=== PATIENT | male | born 1965 | race Caucasian/White ===

== ENCOUNTER 2019-04-04 22:04 | Emergency (ER) | payer SELFPAY ==
[2019-04-04] MEDS ORDERED: HYDROMORPHONE HCL 2 MG/ML inj ONE (22:20)
[2019-04-04] MEDS ORDERED: NA CHLORIDE 0.9% 3,000 ML ONE (22:20)
[2019-04-04] MEDS ORDERED: ONDANSETRON 4 MG/2 ML VIAL ONE (22:20)
[2019-04-04] MEDS ORDERED: FAMOTIDINE 20 MG/2 ML VIAL IV ONE (22:20)
[2019-04-04 22:35] LABS: Absolute Lymphocytes (CBC) 3.9 K/uL (0.7-4.9); Basophils % 0.6 % (0-1.3); Hematocrit 38.9 % (39.6-49.0); Lymphocytes % 42.3 % (15.3-44.8); MPV 8.8 fL (7.6-11.3); RBC Red Blood Cell Count 4.47 M/uL (4.33-5.43)
[2019-04-04 22:38] LABS: Protime INR 0.9
[2019-04-04 23:00] LABS: ALT/SGPT 55 U/L (12-78); AST/SGOT 69 U/L (15-37); Albumin 3.8 g/dL (3.4-5.0); Alkaline Phosphatase 74 U/L (45-117); BUN Blood Urea Nitrogen 23 mg/dL (7-18); Bicarbonate 27 mmol/L (21-32); Bilirubin Direct 0.2 mg/dL (0-0.2); Bilirubin Total 0.5 mg/dL (0.2-1.0); Glucose Level 124 mg/dL (74-106); Lipase 4877 U/L (73-393); Magnesium 1.9 mg/dL (1.8-2.4); NT PRO-BNP 147 pg/mL (<125); Potassium 3.5 mmol/L (3.5-5.1); Protein, Total 6.7 g/dL (6.4-8.2); Sodium Level 141 mmol/L (136-145); Troponin (Emerg Dept Use Only) < 0.02 ng/mL (0.0-0.045)
--- NOTE | 2019-04-04 23:17 | ER ---
Nurse's Notes [facility] Name: Lala Irving Age: 54 yrs Sex: Male : 1965 Arrival Date: 04/04/2019 Time: 22:08 Bed 26 Private MD: Diagnosis: Acute pancreatitis;Abdominal tenderness;Unspecified kidney failure Presentation: 04/04 22:12 Presenting complaint: EMS states: pt hyperventilating pt c/o sudden onset of abd pain, ak1 pressure. pt stated to EMS pt with hx pancreatitis. Transition of care: patient was not received from another setting of care. Onset of symptoms was April 04, 2019 at 21:35. Risk Assessment: Do you want to hurt yourself or someone else? Patient reports no desire to harm self or others. Initial Sepsis Screen: Does the patient meet any 2 criteria? No. Patient's initial sepsis screen is negative. Does the patient have a suspected source of infection? No. Patient's initial sepsis screen is negative. 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 22:12 Method Of Arrival: EMS: [facility] ak1 22:12 Acuity: REX 3 ak1 Triage Assessment: 22:17 General: Appears uncomfortable, Behavior is cooperative. Pain: Complains of pain in ak1 abdomen. EENT: No signs and/or symptoms were reported regarding the EENT system. Historical: - Allergies: 22:17 No Known Allergies; ak1 - Home Meds: 22:17 amlodipine 5 mg tab 1 tab once daily [Active]; ak1 - PMHx: 22:17 GERD; Pancreatitis; Hypertension; ak1 - PSHx: 22:17 Cholecystectomy; back sx; shoulder sx; knee sx; ak1 - Immunization history:: Adult Immunizations. - Social history:: Smoking status: Patient uses tobacco products, smokes one pack cigarettes per day. - Ebola Screening: : No symptoms or risks identified at this time. - Family history:: not pertinent. Screenin:30 Abuse screen: Denies threats or abuse. Nutritional screening: No deficits noted. tr5 Tuberculosis screening: No symptoms or risk factors identified. Fall Risk None identified. Assessment: 22:30 General: Appears distressed, uncomfortable, Behavior is cooperative, restless. Pain: tr5 Complains of pain in abdomen. Pain: Pain currently is 10 out of 10 on a pain scale. Quality of pain is described as crampy, Pain began suddenly, 1 hour ago. Neuro: Level of Consciousness is awake, alert, obeys commands, Oriented to person, place, time, Senior Marketing Specialist are equal bilaterally Moves all extremities. Cardiovascular: Heart tones present Capillary refill < 3 seconds Pulses are all present. Edema is absent. Respiratory: Airway is patent Respiratory effort is even, unlabored, Respiratory pattern is regular, symmetrical. GI: Reports lower abdominal pain, upper abdominal pain. : No signs and/or symptoms were reported regarding the genitourinary system. EENT: No signs and/or symptoms were reported regarding the EENT system. Derm: No signs and/or symptoms reported regarding the dermatologic system. Musculoskeletal: No signs and/or symptoms reported regarding the musculoskeletal system. Injury Description:. 23:46 Reassessment: Patient appears in no apparent distress at this time. Patient and/or tr5 family updated on plan of care and expected duration. Pain level reassessed. Patient is alert, oriented x 3, equal unlabored respirations, skin warm/dry/pink. Vital Signs: 22:17 BP 157 / 106; Pulse 66; Resp 30; Temp 97.8(O); Pulse Ox 97% on R/A; Weight 104.33 kg ak1 (R); Height 5 ft. 66 in. (320.04 cm); Pain 10/10; 23:46 BP 130 / 72; Pulse 53; Resp 17; Pulse Ox 95% on R/A; tr5 22:17 Body Mass Index 10.19 (104.33 kg, 320.04 cm) ak1 ED Course: 22:08 Patient arrived in ED. ak1 22:11 Yonatan London MD is Attending Physician. [facility] 22:16 Triage completed. ak1 22:16 Gustabo Ornelas, RN is Primary Nurse. tr5 22:17 Arm band placed on Patient placed in an exam room, on a stretcher, Patient notified of ak1 wait time. 22:30 Bed in low position. Call light in reach. Side rails up X 1. campus monitor on. Pulse tr5 ox on. NIBP on. 22:33 Initial lab(s) drawn, by me, sent to lab. Maintain EMS IV. Dressing intact. Good blood jp3 return noted. Site clean \T\ dry. Gauge \T\ site: 20gauge in Left AC. Patient maintains SpO2 saturation greater than 95% on room air. 23:15 XRAY Chest (1 view) In Process Unspecified. EDMS 04/05 01:05 CT Abd/Pelvis - PO and IV Contrast In Process Unspecified. EDMS 01:29 No provider procedures requiring assistance completed. Patient transferred, IV remains tr5 in place. Administered Medications: 04/04 23:01 Drug: Pepcid 20 mg Route: IVP; Site: left antecubital; tr5 04/05 01:29 Follow up: Response: No adverse reaction tr5 04/04 23:02 Drug: Dilaudid 1 mg {Note: RASS:0.} Route: IVP; Site: left antecubital; tr5 04/05 00:50 Follow up: Response: Pain is decreased; RASS: Alert and Calm (0) tr5 04/04 23:03 Drug: Zofran 4 mg Route: IVP; Site: left antecubital; tr5 04/05 00:49 Follow up: Response: Nausea is decreased tr5 04/04 23:03 Drug: NS 0.9% 1000 ml Route: IV; Rate: 1 bolus; Site: left antecubital; tr5 04/05 00:50 Follow up: IV Status: Completed infusion; IV Intake: 1000ml tr5 04/04 23:03 Drug: NS 0.9% 1000 ml Route: IV; Rate: 1 bolus; Site: left antecubital; tr5 04/05 00:54 Follow up: IV Status: Completed infusion; IV Intake: 1000ml tr5 00:49 Drug: NS 0.9% 1000 ml Route: IV; Rate: 125 ml/hr; Site: left antecubital; tr5 00:51 Follow up: IV Status: Completed infusion; IV Intake: 1000ml tr5 Intake: 00:50 IV: 1000ml; Total: 1000ml. tr5 00:51 IV: 1000ml; Total: 2000ml. tr5 00:54 IV: 1000ml; Total: 3000ml. tr5 Outcome: 04/04 23:16 ER care complete, transfer ordered by flor 04/05 01:29 Transferred by ground EMS to [facility], Transfer form completed. tr5 Condition: stable Instructed on the need for transfer. 01:30 Patient left the ED. tr5 Signatures: Dispatcher [employer] Yonatan Blanca MD MD cha Krenek, Amber RN RN ak1 Daniel Najera jp3 Gustabo Ornelas RN RN tr5
--- NOTE | 2019-04-04 23:18 | EDPHYS ---
Physician Documentation [facility] Name: Lala Irving Age: 54 yrs Sex: Male : 1965 Arrival Date: 04/04/2019 Time: 22:08 Bed 26 Private MD: ED Physician Yonatan London HPI: 04/04 23:12 This 54 yrs old Male presents to ER via EMS with complaints of abdominal flor pain, hx of pancreatitis. 23:12 The patient presents with abdominal pain. Onset: The symptoms/episode began/occurred flor today. The symptoms do not radiate. Associated signs and symptoms: none. The symptoms are described as crampy, steady. Modifying factors: The symptoms are alleviated by nothing. Severity of pain: At its worst the pain was moderate severe in the emergency department the pain is unchanged. The patient has experienced similar episodes in the past, a few times. Historical: - Allergies: 22:17 No Known Allergies; ak1 - Home Meds: 22:17 amlodipine 5 mg tab 1 tab once daily [Active]; ak1 - PMHx: 22:17 GERD; Pancreatitis; Hypertension; ak1 - PSHx: 22:17 Cholecystectomy; back sx; shoulder sx; knee sx; ak1 - Immunization history:: Adult Immunizations. - Social history:: Smoking status: Patient uses tobacco products, smokes one pack cigarettes per day. - Ebola Screening: : No symptoms or risks identified at this time. - Family history:: not pertinent. ROS: 23:12 Constitutional: Negative for fever, chills, and weight loss, Eyes: Negative for injury, flor pain, redness, and discharge, ENT: Negative for injury, pain, and discharge, Neck: Negative for injury, pain, and swelling, Cardiovascular: Negative for chest pain, palpitations, and edema, Respiratory: Negative for shortness of breath, cough, wheezing, and pleuritic chest pain, Back: Negative for injury and pain, : Negative for injury, bleeding, discharge, and swelling, MS/Extremity: Negative for injury and deformity, Skin: Negative for injury, rash, and discoloration, Neuro: Negative for headache, weakness, numbness, tingling, and seizure, Psych: Negative for depression, anxiety, suicide ideation, homicidal ideation, and hallucinations, Allergy/Immunology: Negative for hives, rash, and allergies, Endocrine: Negative for neck swelling, polydipsia, polyuria, polyphagia, and marked weight changes, Hematologic/Lymphatic: Negative for swollen nodes, abnormal bleeding, and unusual bruising. 23:12 Abdomen/GI: Positive for abdominal pain, of the epigastric area, right upper quadrant and left upper quadrant. Exam: 23:12 Constitutional: This is a well developed, well nourished patient who is awake, alert, flor and in no acute distress. Head/Face: Normocephalic, atraumatic. Eyes: Pupils equal round and reactive to light, extra-ocular motions intact. Lids and lashes normal. Conjunctiva and sclera are non-icteric and not injected. Cornea within normal limits. Periorbital areas with no swelling, redness, or edema. ENT: Nares patent. No nasal discharge, no septal abnormalities noted. Tympanic membranes are normal and external auditory canals are clear. Oropharynx with no redness, swelling, or masses, exudates, or evidence of obstruction, uvula midline. Mucous membranes moist. Neck: Trachea midline, no thyromegaly or masses palpated, and no cervical lymphadenopathy. Supple, full range of motion without nuchal rigidity, or vertebral point tenderness. No Meningismus. Chest/axilla: Normal chest wall appearance and motion. Nontender with no deformity. No lesions are appreciated. Cardiovascular: Regular rate and rhythm with a normal S1 and S2. No gallops, murmurs, or rubs. Normal PMI, no JVD. No pulse deficits. Respiratory: Lungs have equal breath sounds bilaterally, clear to auscultation and percussion. No rales, rhonchi or wheezes noted. No increased work of breathing, no retractions or nasal flaring. Back: No spinal tenderness. No costovertebral tenderness. Full range of motion. Male : Normal genitalia with no discharge or lesions. Skin: Warm, dry with normal turgor. Normal color with no rashes, no lesions, and no evidence of cellulitis. MS/ Extremity: Pulses equal, no cyanosis. Neurovascular intact. Full, normal range of motion. Neuro: Awake and alert, GCS 15, oriented to person, place, time, and situation. Cranial nerves II-XII grossly intact. Motor strength 5/5 in all extremities. Sensory grossly intact. Cerebellar exam normal. Normal gait. Psych: Awake, alert, with orientation to person, place and time. Behavior, mood, and affect are within normal limits. 23:12 Abdomen/GI: Inspection: abdomen appears normal, Bowel sounds: normal, Palpation: moderate abdominal tenderness, in the epigastric area, right upper quadrant and left upper quadrant, Liver: no appreciated palpable abnormalities, Hernia: noted in the umbilical area. Vital Signs: 22:17 BP 157 / 106; Pulse 66; Resp 30; Temp 97.8(O); Pulse Ox 97% on R/A; Weight 104.33 kg ak1 (R); Height 5 ft. 66 in. (320.04 cm); Pain 10/10; 23:46 BP 130 / 72; Pulse 53; Resp 17; Pulse Ox 95% on R/A; tr5 22:17 Body Mass Index 10.19 (104.33 kg, 320.04 cm) ak1 MDM: 22:12 Patient medically screened. [facility] 23:12 Data reviewed: vital signs, nurses notes, lab test result(s), EKG, radiologic studies, [facility] CT scan, plain films. 04/04 22:13 Order name: Basic Metabolic Panel; Complete Time: 00:16 [facility] 04/04 22:13 Order name: CBC with Diff; Complete Time: 23:11 [facility] 04/04 22:13 Order name: LFT's; Complete Time: 00:16 [facility] 04/04 22:13 Order name: Magnesium; Complete Time: 00:16 [facility] 04/04 22:13 Order name: NT PRO-BNP; Complete Time: 00:16 [facility] 04/04 22:13 Order name: PT-INR; Complete Time: 23:11 [facility] 04/04 22:13 Order name: Troponin (emerg Dept Use Only); Complete Time: 00:16 [facility] 04/04 22:13 Order name: XRAY Chest (1 view) [facility] 04/04 22:13 Order name: Lipase; Complete Time: 00:16 [facility] 04/04 22:16 Order name: CT Abd/Pelvis - PO and IV Contrast [facility] 04/05 00:09 Order name: Lipid Profile; Complete Time: 00:16 [facility]FL 04/04 22:13 Order name: EKG; Complete Time: 22:14 [facility] 04/04 22:13 Order name: Cardiac monitoring; Complete Time: 23:03 [facility] 04/04 22:13 Order name: EKG - Nurse/Tech; Complete Time: 23:03 [facility] 04/04 22:13 Order name: IV Saline Lock; Complete Time: 23:04 [facility] 04/04 22:13 Order name: Labs collected and sent; Complete Time: 23:04 [facility] 04/04 22:13 Order name: O2 Per Protocol; Complete Time: 23:04 [facility] 04/04 22:13 Order name: O2 Sat Monitoring; Complete Time: 23:10 [facility] Administered Medications: 23:01 Drug: Pepcid 20 mg Route: IVP; Site: left antecubital; [facility] 04/05 01:29 Follow up: Response: No adverse reaction [facility] 04/04 23:02 Drug: Dilaudid 1 mg {Note: RASS:0.} Route: IVP; Site: left antecubital; tr5 04/05 00:50 Follow up: Response: Pain is decreased; RASS: Alert and Calm (0) [facility] 04/04 23:03 Drug: Zofran 4 mg Route: IVP; Site: left antecubital; tr5 04/05 00:49 Follow up: Response: Nausea is decreased [facility] 04/04 23:03 Drug: NS 0.9% 1000 ml Route: IV; Rate: 1 bolus; Site: left antecubital; tr5 04/05 00:50 Follow up: IV Status: Completed infusion; IV Intake: 1000ml [facility] 04/04 23:03 Drug: NS 0.9% 1000 ml Route: IV; Rate: 1 bolus; Site: left antecubital; tr5 04/05 00:54 Follow up: IV Status: Completed infusion; IV Intake: 1000ml tr5 00:49 Drug: NS 0.9% 1000 ml Route: IV; Rate: 125 ml/hr; Site: left antecubital; tr5 00:51 Follow up: IV Status: Completed infusion; IV Intake: 1000ml tr5 Disposition: 04/04/19 23:16 Transfer ordered to [facility]. Diagnosis are Acute pancreatitis, Abdominal tenderness, Unspecified kidney failure. - Reason for transfer: Higher level of care. - Accepting physician is to [facility]. - Condition is Fair. - Problem is new. - Symptoms have improved. Signatures: Dispatcher [employer] Yonatan Blanca MD MD cha Krenek, Amber, RN RN ak1 Gustabo Ornelas RN RN tr5 Corrections: (The following items were deleted from the chart) 00:21 04/04 23:56 LIPID PROFILE+[id number].LAB.BRZ ordered. EDMS EDMS 04/05 01:30 04/04 23:16 04/04/2019 23:16 Transfer ordered to [facility]. tr5 Diagnosis is Acute pancreatitis; Abdominal tenderness; Unspecified kidney failure. Reason for transfer: Higher level of care. Accepting physician is to [facility]. Condition is Fair. Problem is new. Symptoms have improved. flor
[2019-04-05 00:09] LABS: HDL Cholesterol 44 mg/dL (40-60); LDL Cholesterol, Calculated 115 (<130)
[2019-04-05 01:35] VITALS: TEMP 97.8
[2019-04-05 01:37] VITALS: BP 130/72; O2SAT 95
--- NOTE | 2019-04-05 06:09 | EKG ---
Test Date: 2019-04-04 Test Time: 22:42:42 Store Merchandiser: TR MEASUREMENT RESULTS: Intervals: Rate: 57 ME: 208 QRSD: 96 QT: 418 QTc: 406 [place]: P: 45 ME: 208 QRS: 34 T: 40 INTERPRETIVE STATEMENTS: Sinus bradycardia Minimal voltage criteria for LVH, may be normal variant Borderline ECG Compared to ECG 10/01/2015 16:27:54 Left ventricular hypertrophy now present Sinus rhythm no longer present T-wave abnormality no longer present Electronically Signed On 04-05-19 06:08:57 CDT by Gui Nagel
--- NOTE | 2019-04-05 09:44 | RAD REPORT ---
EXAM DESCRIPTION: Rigobertot Single View04/04/2019 11:15 pm CLINICAL HISTORY: cough COMPARISON: 2016 FINDINGS: The lungs appear clear of acute infiltrate. The heart is borderline enlarged Aorta is tortuous/ectatic IMPRESSION: No acute abnormalities displayed
--- NOTE | 2019-04-06 11:41 | RAD REPORT ---
EXAM DESCRIPTION: CT - Abdomen Pelvis W Contrast - 04/05/2019 1:46 am CLINICAL HISTORY: 54-year-old male with abdominal pain TECHNIQUE: Axial CT imaging of the abdomen and pelvis was performed following the administration of intravenous contrast.. Sagittal and coronal reconstructed images were then performed. The CT stud y is performed according to ALARA (as low as reasonably achievable) or ALARA/IMAGE GENTLY, with autom atic adjustment of mA and/or kV according to patient size. Performed on: 04/05/2019 at 12:49 AM. COMPARISON: CT abdomen and pelvis without contrast performed on 10/01/2015 FINDINGS: Lung bases: The lung bases are clear. Liver: The liver is normal in size and configuration. No focal hepatic abnormalities are identified. Liver attenuation is within normal limits. Spleen: The spleen is enlarged and measures 14.6 cm in craniocaudal dimension. No focal splenic abnor malities are identified. Gallbladder and bile duct: The gallbladder is surgically absent. There is no biliary ductal dilatat ion. Pancreas: The pancreas is grossly normal in size and configuration. Adrenal Glands: The adrenal glands are normal in size and configuration. Kidneys: The kidneys are normal in size and configuration. Again demonstrated is marked dilatation of the inferior right renal collecting system. The upper pole calyces are normal in caliber. Findings m ay be developmental in nature. There is no obstructing ureteral calcification. There is no evidence o f nephrolithiasis. There are a couple of small left renal cortical cysts. Stomach: The stomach is grossly normal. There is questionable gastric wall thickening along the great er curvature of the gastric antrum and body. There is no definite hiatal hernia. Bowel: The bowel gas pattern is non specific and non obstructive. Appendix: The appendix is normal. Free air: There is no evidence of free air. Free fluid: There is no evidence of free fluid. Vasculature: The aorta is normal in caliber and contour. The inferior vena cava is grossly unremarkab le. Lymphadenopathy: No pathologic lymphadenopathy is identified. There are a few small scattered retrope ritoneal lymph nodes. Bladder: The bladder is well distended and smooth in contour. Reproductive: The prostate gland is grossly within normal limits. Bones: No acute osseous abnormalities are identified. There are mild degenerative changes of the spin e. Soft tissues: There is a marleni appearance of the mesenteric fat within the central abdomen which is n onspecific but can be seen with sclerosing mesenteritis. This could represent the sequela of prior pa ncreatitis. There is a fat-containing ventral abdominal hernia which has increased in size since the prior study. Currently this measures approximately 5.8 x 3.9 cm in cross-sectional diameter by approx imately 8.6 cm in craniocaudal dimension. IMPRESSION: 1. No definite acute intra-abdominal or intrapelvic pathology. 2. Nonspecific marleni appearance of the mesentery within the central abdomen which could reflect scler osing mesenteritis or possibly the sequela of prior pancreatitis. There are a few small scattered ret roperitoneal lymph nodes. 3. Splenomegaly. 4. Grossly stable marked dilatation of the right inferior renal collecting system which may be develo pmental in nature. There is no obstructing ureteral calculus. 5. Prior cholecystectomy. 6. Interval enlargement of a fat-containing ventral umbilical hernia. 7. Questionable gastric wall thickening along the greater curvature of the gastric antrum and body. F indings could reflect incomplete distention, chronic inflammatory process or potentially neoplastic p rocess. Electronically signed by: Kezia Rojas DO 04/05/2019 1:39 AM CDT Due to temporary technical issues with the PACS/Fluency reporting system, reports are being signed by the in house radiologist as a courtesy to ensure prompt reporting. The interpreting radiologist is albaro ryder responsible for the content of the report.
== END 2019-04-05 01:30 | disposition short-term general hospital (02) ==
LOC: ER 22:04
DX: K85.90 Acute pancreatitis without necrosis or infection, unspecified (principal); N19 Unspecified kidney failure; I10 Essential (primary) hypertension; F17.210 Nicotine dependence, cigarettes, uncomplicated
CPT/HCPCS: 36415; 71045; 74177; 80048; 80061; 80076; 83690; 83735; 83880; 84484; 85025; 85610; 93005; 96361; 96374; 96375; 99285; J1170; J2405; J7030; Q9967

== ENCOUNTER 2023-05-08 12:33 | Day surgery (SDC) | payer OTHER ==
[2023-05-03 09:19] LABS: Absolute Lymphocytes (CBC) 2.1 K/uL (0.7-4.9); Hematocrit 42.1 % (39.6-49.0); Lymphocytes % 29.7 % (15.3-44.8); MCV 88.3 fL (80-100); MPV 8.5 fL (7.6-11.3); Platelets 167 thou/uL (152-406); RBC Red Blood Cell Count 4.77 M/uL (4.33-5.43)
[2023-05-03 10:50] LABS: Potassium 3.7 mEq/L (3.5-5.1)
--- NOTE | 2023-05-03 14:22 | EKG ---
Test Date: 2023-05-03 Test Time: 09:53:56 Beam Builder Helper: EDWARD MEASUREMENT RESULTS: Intervals: Rate: 48 MD: 202 QRSD: 94 QT: 430 QTc: 384 [place]: P: 55 MD: 202 QRS: 35 T: 72 INTERPRETIVE STATEMENTS: Marked sinus bradycardia Left ventricular hypertrophy with repolarization abnormality Abnormal ECG Compared to ECG 04/04/2019 22:42:42 Early repolarization now present Electronically Signed On 05-03-23 14:21:50 FURNACE UNLOADER by Brendan Hankins
[2023-05-08] MEDS ORDERED: CEFAZOLIN SODIUM 2 GM/VIAL ONE (12:59)
[2023-05-08] MEDS ORDERED: Ringers Lactate 1,000 ML IV ONE (12:59)
[2023-05-08] MEDS ORDERED: BUPIVACAINE 0.25% PF 30 ML VIAL ONE (13:08)
[2023-05-08] MEDS ORDERED: MIDAZOLAM HCL 2 MG/2 ML INJ ONE (14:10)
[2023-05-08] MEDS ORDERED: propofoL 200 MG/20 ML VIAL IV ONE (14:10)
[2023-05-08] MEDS ORDERED: FENTANYL CITR 100 MCG/2 ML ONE (14:10)
[2023-05-08] MEDS ORDERED: ROCURONIUM 50 MG/5 ML VIAL IV ONE (14:11)
[2023-05-08] MEDS ORDERED: LIDOCAINE 2% MPF 5 ML VIAL ONE (14:15)
[2023-05-08] MEDS ORDERED: GLYCOPYRROLATE 0.2 MG/ML SYR ONE (15:11)
[2023-05-08] MEDS ORDERED: EPHEDRINE SULF 50 MG/ML VIAL ONE (15:11)
[2023-05-08] MEDS ORDERED: ONDANSETRON 4 MG/2 ML VIAL ONE (15:19)
--- NOTE | 2023-05-08 15:21 | P.OP ---
Preoperative diagnosis: Ventral Incisional Hernia Postoperative diagnosis: Ventral Incisional Hernia Primary procedure: Laparoscopic Ventral Incisional Hernia Repair with mesh Secondary procedure: Laparoscopic Adhesiolysis > 60min Anesthesia: GETA + Local Estimated blood loss: ~20cc Specimen: hernia contents Findings: incarcerated omentum, small bowel in hernia defect ~ 7cm round jasiel umbilica Complications: None Implants: Bard Ventralite ST Mesh 15cm Round, 75 Sorbafix Tacks Transferred to: Recovery Room Condition: Good
[2023-05-08] MEDS: HYDROMORPHONE HCL 1 MG/ML INJ ONE ×6 (15:29→16:20)
[2023-05-08] MEDS: FENTANYL CITR 100 MCG/2 ML ONE ×2 (15:49→15:54)
--- NOTE | 2023-05-08 16:22 | OP ---
Date of Procedure: 05/08/2023 Surgeon: Denzel John MD, Preoperative Diagnosis: Ventral incisional hernia. Postoperative Diagnosis: Ventral incisional hernia. Procedures Performed: 1.Laparoscopic ventral incisional hernia repair with mesh. 2.Laparoscopic adhesiolysis greater than 60 minutes. Anesthesia: General endotracheal plus local with 0.25% Marcaine. Estimated Blood Loss: 20 cc. Specimen: Hernia contents. Findings: Incarcerated omentum, small bowel hernia defect approximately 7 cm, periumbilical hernia d efect noted. Complications: None. Implants: Bard Ventralight ST mesh with Echo Positioning System. A 15 cm round mesh utilized, 75 So rbaFix absorbable fixation tacks utilized. Disposition: Patient was transferred to recovery room in good condition. Procedure In Detail: After informed consent was obtained, patient was brought to the operating room, prepped and draped in the usual sterile fashion. After adequate anesthesia was achieved, I anesthet ized the area of the left upper quadrant down to subcutaneous tissues. A 5 mm 0-degree optical troca r was introduced in the abdomen without any evidence of complication. Insufflation was obtained to 1 5 mmHg at this time. There was no injury to vital structures in the abdomen. Additional trocar was placed in the left lower quadrant. This was similarly anesthetized, sharply incised. A 5 mm trocar was placed under direct vision without evidence of complication. I then used a LigaSure device to ta ke down significant omental and small bowel adhesions from the anterior abdominal wall without eviden ce of complication. There was no small bowel injury or strangulation noted to any segment of small b owel throughout the entire procedure. After small bowel was reduced using predominately blunt dissec tion, only thin alveolar attachments were attached to small bowel. After the adipose tissue was amy jordyn from the anterior abdominal wall and reduced from the periumbilical hernia defect, it was reduced in normal anatomic position. After this was performed, I swept clean the preperitoneal fat using th e LigaSure device to allow for appropriate landing zone. The size of the hernia defect at this point , found to be approximately 7 cm round in the periumbilical position to the right and inferior of the umbilicus. The neck was described as approximately 7 cm in size. At this point, I brought in the 1 5 cm [address] [employer] Vent[address]ight ST mesh with Echo Positioning System, deployed the mesh in the central po rtion of the defect and secured to the anterior abdominal wall using a single crown at this point wit h SorbaFix absorbable fixation tacks. At this point, the hernia defect was closed quite well. I rem carson the balloon deployment system, found to be intact on the back table and I secured the mesh to th e anterior abdominal using a total of 75 absorbable fixation tacks from the SorbaFix tacker with good apposition of mesh to the abdominal wall. There was 1 area of bleeding from the right lower side of the abdominal wall, which was controlled with additional tack placement and gentle pressure on the a bdominal wall for approximately 60 seconds. At this point, no additional hemostatic measures require d throughout the procedure. The area was checked multiple times under desufflation and with multiple probing attempts without any additional bleeding. At this point, the mesh was in good position. No additional hemostatic measures required. I closed the left lower quadrant trocar site using a Carte r-Cristal suture passer with 0 Vicryl in interrupted fashion with good approximation of tissues. Th e abdomen was completely desufflated under direct vision without evidence of complication. Remaining trocars were removed. All skin edges were then copiously irrigated and closed with a 4-0 Monocryl f ashion with Dermabond placed over top. Patient tolerated the procedure well without evidence of complication and was transferred in good condition. All counts we re correct at the end of the case. JEANNE/TRUNG Voice ID: [id number] Report ID: [id number]
[2023-05-08] MEDS ORDERED: HYDROCODONE/APAP 10/325 TAB ONE (16:55)
[2023-05-08 17:17] VITALS: BP 135/65; TEMP 97.9; O2SAT 95
== END 2023-05-08 17:15 | disposition home or self-care (01) ==
LOC: OR 12:33
PROVIDERS: ATTEND Surgery
PROC: 0DNU4ZZ Release Omentum, Percutaneous Endoscopic Approach (ICD-10-PCS; 2023-05-08)
PROC: 0WUF4JZ Supplement Abdominal Wall with Synthetic Substitute, Percutaneous Endoscopic Approach (ICD-10-PCS; principal; 2023-05-08 14:00)
DX: K43.2 Incisional hernia without obstruction or gangrene (principal); K66.0 Peritoneal adhesions (postprocedural) (postinfection); I10 Essential (primary) hypertension; K21.9 Gastro-esophageal reflux disease without esophagitis; K85.90 Acute pancreatitis without necrosis or infection, unspecified; F17.210 Nicotine dependence, cigarettes, uncomplicated
CPT/HCPCS: 93005; 85025; 80048; 36415; 49593; 49329; J2704; J2001; J2250; J3010 ×2; J1170 ×3; J2405; J7120